=== PATIENT | male | born 1990 | race Caucasian/White ===

== ENCOUNTER 2022-04-10 23:25 | Emergency (ER) | payer OTHER ==
[~2022-04-10] VITALS: Ht 185.4 cm; Wt 112.5 kg
--- NOTE | 2022-04-10 23:25 | NUR ---
PT BIB [facility], PREBOOK. TAKEN TO CHAIR
[2022-04-10 23:32] VITALS: BP 132/66
--- NOTE | 2022-04-10 23:44 | NUR ---
DR MAURICE EXAMINING PT
[2022-04-10 23:57] VITALS: BP 132/62
--- NOTE | 2022-04-10 23:57 | NUR ---
Patient D/C to custody.
== END 2022-04-10 23:57 ==
LOC: MED 23:25
DX: Z02.89 Encounter for other administrative examinations (principal); V43.53XA Car driver injured in collision with pick-up truck in traffic accident, initial encounter; Y93.89 Activity, other specified; Y92.89 Other specified places as the place of occurrence of the external cause; Y99.8 Other external cause status
CPT/HCPCS: 99283